=== PATIENT | male | born 1985 | race Caucasian/White ===

== ENCOUNTER → 2017-11-22 | Outpatient (CLI) | payer BC ==
[~2017-11-22] MED LIST: NO CURRENT MEDS
[2017-11-22 08:27] LABS: PLATELET COUNT, AUTOMATED 218 K/uL (150-450)
== END ==
LOC: LAB 08:09
PROVIDERS: ATTEND Nurse Practitioner Family
DX: Z00.00 Encounter for general adult medical examination without abnormal findings (principal); R63.1 Polydipsia; R35.8 Other polyuria; R81 Glycosuria; R73.09 Other abnormal glucose; E87.5 Hyperkalemia
CPT/HCPCS: 36415; 82040; 82247; 82310; 82374; 82435; 82465; 82565; 82947; 83036; 83540; 83718; 84075; 84132; 84155; 84295; 84443; 84450; 84460; 84478; 84520; 85025

== ENCOUNTER 2017-11-24 15:47 | Outpatient (RCR) | payer BC ==
[~2017-11-24] VITALS: Ht 190.5 cm; Wt 142.9 kg
--- NOTE | 2017-11-24 18:25 | Medical Nutrition Therapy ---
Nutrition Anthropometrics Height (Inches): 75.00 Height (Calculated Centimeters: 190.505872 Weight (Pounds): 315 Weight (Calculated Kilograms): 142.502642 Hx Weight Loss: Yes Jey Nutrition Score: Jey Nutrition Risk Score: Dietary Referral Nutrition Risk Factors: Nutrition Risk Comment: Physical Findings Physical Appearance: Obese BMI 30-39 Skin Appearance Skin Appearance: Edema Edema Location Modifier: Edema Location: Type of Edema: Degree of Edema: Gastrointestinal Symptoms GI Symtoms: Tube Present: Bowel Sounds: Recent Bowel Pattern: Stool Characteristics: Nutrition/Food History Good Skipped Meals: Yes Alcohol Use: Occassional Exercise: No Nutritional Education Nutrition Education Topic: Diabetic Nutrition Learning Barriers: Emotional Learning Readiness: Interested Teaching Methods: Discussion, Handout Response to Teaching: Verbalize understanding Teaching Recipient: Patient, Significant Other Nutrition Monitoring & Eval RD Patient Assessment Time: [address] Assessment Type: RD Education Nutritional Comment: Pt recently diagnosed with T2DM after overt symptoms and blood glucose levels in the 300's. Pt and educated on importance of carbohydrate control at meals/snacks. Discussed meal plan and label reading. Pt able to use label reading and knowledge of basic carb counting to plan simple meals with some assistance. Also encouraged pt to increase activity to help BG control. Pt and spouse appear interested in diabetes topics and able to answer questions regarding topics covered. I personally spent a total of 60 minutes educating/counseling patient regarding diabetes self-management in an individual setting. See education section and my note above for details. PALOMO WARREN Nov 24, 2017 18:25
== END 2017-12-29 ==
LOC: DIET 15:47
PROVIDERS: ATTEND Nurse Practitioner Family
DX: E11.649 Type 2 diabetes mellitus with hypoglycemia without coma (principal); E78.4 Other hyperlipidemia; D75.1 Secondary polycythemia; E66.9 Obesity, unspecified; F17.210 Nicotine dependence, cigarettes, uncomplicated; Z68.39 Body mass index [BMI] 39.0-39.9, adult; Z79.84 Long term (current) use of oral hypoglycemic drugs
CPT/HCPCS: G0108 ×2

== ENCOUNTER → 2017-12-28 | Outpatient (CLI) | payer BC ==
[2017-12-28 09:45] LABS: PLATELET COUNT, AUTOMATED 263 K/uL (150-450)
== END ==
LOC: LAB 09:30
PROVIDERS: ATTEND Nurse Practitioner Family
DX: D75.1 Secondary polycythemia (principal); F17.200 Nicotine dependence, unspecified, uncomplicated; G47.33 Obstructive sleep apnea (adult) (pediatric)
CPT/HCPCS: 36415; 85025; 99195

== ENCOUNTER → 2017-12-28 | Outpatient (CLI) | payer BC ==
[2017-12-28 10:23] VITALS: BP 129/92
== END ==
LOC: SPU 10:06
PROVIDERS: ATTEND Nurse Practitioner Family
DX: D75.1 Secondary polycythemia (principal); Z72.0 Tobacco use; G47.33 Obstructive sleep apnea (adult) (pediatric)

== ENCOUNTER → 2018-02-17 | Outpatient (CLI) | payer BC ==
[2018-02-17 09:42] LABS: PLATELET COUNT, AUTOMATED 240 K/uL (150-450)
[2018-02-17 09:52] LABS: LDL CHOLESTEROL 31 mg/dl
== END ==
LOC: LAB 09:22
PROVIDERS: ATTEND Nurse Practitioner Family
DX: E11.9 Type 2 diabetes mellitus without complications (principal); D75.1 Secondary polycythemia; E78.5 Hyperlipidemia, unspecified
CPT/HCPCS: 36415; 82040; 82247; 82310; 82374; 82435; 82465; 82565; 82947; 83036; 83718; 84075; 84132; 84155; 84295; 84450; 84460; 84478; 84520; 85025

== ENCOUNTER → 2018-05-23 | Outpatient (CLI) | payer BC ==
[2018-05-23 09:57] LABS: LDL CHOLESTEROL 38 mg/dl
== END ==
LOC: LAB 08:38
PROVIDERS: ATTEND Nurse Practitioner Family
DX: E11.9 Type 2 diabetes mellitus without complications (principal); E78.5 Hyperlipidemia, unspecified
CPT/HCPCS: 36415; 82040; 82247; 82310; 82374; 82435; 82465; 82565; 82947; 83036; 83718; 84075; 84132; 84155; 84295; 84450; 84460; 84478; 84520